=== PATIENT | female | born 1985 | race Caucasian/White ===

== ENCOUNTER 2016-05-19 09:16 | Emergency (ER) | payer BC ==
[~2016-05-19] VITALS: Ht 165.1 cm; Wt 57.4 kg
[~2016-05-19 09:16] MED LIST: ALDOMET250 MG PO; ALDOMET500 MG PO; CEPHALEXIN500 MG PO; Colace PO; ENDOCET 5-3251 EACH PO; Feosol PO; Hydrodiuril,Oretic,E PO; IBUPROFEN800 MG PO; KEFLEX500 MG PO; LABETALOL HCL100 MG PO; LABETALOL HCL200 MG PO; LABETALOL HCL300 MG PO; LISINOPRIL-HCT1 EAC3 PO; Motrin PO; NOHOMEMEDS; NORMODYNE,TRAN200 MG PO; Normodyne,Trandate PO; Norvasc PO; PREFERA-OB P1 TABLET PO; PRENATAL TABLE1 EAC3 PO; PROCARDIA XL30 MG PO; ULTRAM50 MG PO
[2016-05-19 10:12] LABS: HEMATOCRIT 40.6 % (36.0-46.0); MCH 29.6 PG (29.0-34.0); MCHC 34.5 G/DL (30.0-36.0); MCV 85.8 FL (83-99); MEAN PLAT.VOLUME 12.2 uM^3 (9.5-12.4); PLATELET COUNT 187 K/uL (156-360); RBC DIS.WIDTH-CV 12.4 % (11.8-14.6); RBC DIS.WIDTH-SD 38.3 % (39-53); RED BLOOD COUNT 4.73 M/uL (3.80-5.20); WHITE BLOOD COUNT 6.6 K/uL (4.1-10.2)
[2016-05-19 10:22] LABS: CHLORIDE 103 mEq/L (99-109); POTASSIUM 3.7 mEq/L (3.7-5.4); SODIUM 138 mEq/L (136-147)
[2016-05-19 10:24] LABS: GLUCOSE 119 mg/dL (70-99)
[2016-05-19] MEDS ORDERED: MORGIDOX50 MG PO (10:24)
[2016-05-19] MEDS ORDERED: ATENOLOL/CHLOR1 EAC1 PO (10:24)
[2016-05-19 10:26] LABS: ANION GAP 11 MEQ/L (2-14)
[2016-05-19 10:28] LABS: GFR ESTIMATE (CALCULATED) > 59 mL/min/
[2016-05-19 10:29] LABS: UREA NITROGEN (BUN) 10 mg/dL (9-23)
[2016-05-19 10:38] LABS: QUANTITATIVE HCG < 4.0 MIU/ML
[2016-05-19 11:11] LABS: TROP-I INTERPRETATION NEGATIVE; TROPONIN-I < 0.01 ng/mL (0.0-0.30)
[2016-05-19] MEDS ORDERED: ANTIVERT25 MG PO (13:26)
[2016-05-19 14:40] VITALS: BP 130/86
== END 2016-05-19 14:40 | disposition home or self-care (01) ==
LOC: EME 09:16
DX: R42 Dizziness and giddiness (principal); Z91.018 Allergy to other foods; I10 Essential (primary) hypertension
CPT/HCPCS: 70450; 71020; 80048; 84484; 84702; 85027; 93005; 99281; 99284

== ENCOUNTER 2016-08-27 09:42 | Emergency (ER) | payer BC ==
[~2016-08-27] VITALS: Ht 165.1 cm; Wt 56.0 kg
[~2016-08-27 09:42] MED LIST changes: +ANTIVERT25 MG PO; +ATENOLOL/CHLOR1 EAC1 PO; +MORGIDOX50 MG PO
[2016-08-27 10:45] LABS: BASOPHIL COUNT 0.1 K/uL (0-0.1); EOSINOPHIL (%) 0.6 % (0-5); HEMATOCRIT 37.8 % (36.0-46.0); IMMATURE GRANULOCYTE (%) 0.3 % (0.0-0.7); INSTRUMENT ABS NEUTROPHIL CT 4.1 K/uL; LYMPHOCYTE COUNT 2.2 K/uL (1.0-2.8); MCH 28.9 PG (29.0-34.0); MCHC 32.8 G/DL (30.0-36.0); MCV 88.1 FL (83-99); MONOCYTE (%) 5.8 % (3-12); MONOCYTE COUNT 0.4 K/uL (0-0.8); NEUTROPHIL (%) 60.5 % (45-76); NEUTROPHIL COUNT 4.1 K/uL (1.8-6.4); PLATELET COUNT 219 K/uL (156-360); RBC DIS.WIDTH-CV 13.5 % (11.8-14.6); RBC DIS.WIDTH-SD 43.8 % (39-53); RED BLOOD COUNT 4.29 M/uL (3.80-5.20); WHITE BLOOD COUNT 6.8 K/uL (4.1-10.2)
[2016-08-27 10:59] LABS: CHLORIDE 109 mEq/L (99-109); POTASSIUM 4.1 mEq/L (3.7-5.4); SODIUM 140 mEq/L (136-147)
[2016-08-27 11:01] LABS: GLUCOSE 98 mg/dL (70-99)
[2016-08-27 11:02] LABS: ANION GAP 9 MEQ/L (2-14)
[2016-08-27 11:05] LABS: GFR ESTIMATE (CALCULATED) > 59 mL/min/
[2016-08-27 11:06] LABS: UREA NITROGEN (BUN) 9 mg/dL (9-23)
[2016-08-27 11:13] LABS: QUANTITATIVE HCG < 4.0 MIU/ML
[2016-08-27 12:59] VITALS: BP 125/98
== END 2016-08-27 13:00 | disposition home or self-care (01) ==
LOC: EME 09:42
PROVIDERS: Emergency Medicine
DX: G25.2 Other specified forms of tremor (principal); F41.9 Anxiety disorder, unspecified; I10 Essential (primary) hypertension
CPT/HCPCS: 70450; 80048; 84702; 85025; 99281; 99285; J2060; J7030

== ENCOUNTER 2017-05-19 08:09 | Emergency (ER) | payer BC ==
[~2017-05-19] VITALS: Ht 165.1 cm; Wt 61.3 kg
[2017-05-19 09:26] LABS: BASOPHIL (%) 1.3 % (0-1); BASOPHIL COUNT 0.1 K/uL (0-0.1); EOSINOPHIL (%) 1.1 % (0-5); EOSINOPHIL COUNT 0.1 K/uL (0-0.3); HEMATOCRIT 39.5 % (36.0-46.0); HEMOGLOBIN 13.6 G/DL (11.9-15.5); IMMATURE GRANULOCYTE (%) 0.2 % (0.0-0.7); LYMPHOCYTE (%) 35.4 % (15-42); MCH 30.8 PG (29.0-34.0); MCHC 34.4 G/DL (30.0-36.0); MCV 89.4 FL (83-99); MONOCYTE (%) 6.8 % (3-12); MONOCYTE COUNT 0.4 K/uL (0-0.8); NEUTROPHIL (%) 55.2 % (45-76); NEUTROPHIL COUNT 3.1 K/uL (1.8-6.4); PLATELET COUNT 191 K/uL (156-360); RBC DIS.WIDTH-CV 11.9 % (11.8-14.6); RBC DIS.WIDTH-SD 38.9 % (39-53); RED BLOOD COUNT 4.42 M/uL (3.80-5.20); WHITE BLOOD COUNT 5.6 K/uL (4.1-10.2)
[2017-05-19 09:37] LABS: CHLORIDE 110 mEq/L (99-109); POTASSIUM 4.3 mEq/L (3.7-5.4); SODIUM 139 mEq/L (136-147)
[2017-05-19 09:38] LABS: GLUCOSE 99 mg/dL (70-99)
[2017-05-19 09:39] LABS: D-DIMER ELISA < 150.00 ng/mLDDU (<230); PTT 29.7 SEC (25-37)
[2017-05-19 09:42] LABS: CREATININE 0.7 mg/dL (0.6-1.3); GFR ESTIMATE (CALCULATED) > 59 mL/min/
[2017-05-19 09:43] LABS: UREA NITROGEN (BUN) 10 mg/dL (9-23)
[2017-05-19 09:48] LABS: TROP-I INTERPRETATION NEGATIVE; TROPONIN-I < 0.01 ng/mL (0.0-0.30)
[2017-05-19 12:14] LABS: TROP-I INTERPRETATION NEGATIVE; TROPONIN-I < 0.01 ng/mL (0.0-0.30)
[2017-05-19] MEDS ORDERED: MOTRIN800 MG PO (12:41)
[2017-05-19 12:51] VITALS: BP 117/80
== END 2017-05-19 12:59 | disposition home or self-care (01) ==
LOC: EME 08:09
PROVIDERS: Emergency Medicine
DX: R07.89 Other chest pain (principal); I10 Essential (primary) hypertension; F41.9 Anxiety disorder, unspecified
CPT/HCPCS: 71045; 80048; 84484; 85025; 85379; 85610; 85730; 93005; 99281; 99284

== ENCOUNTER 2017-05-27 14:53 | Emergency (ER) | payer BC ==
[~2017-05-27] VITALS: Ht 165.1 cm; Wt 68.0 kg
[~2017-05-27 14:53] MED LIST changes: +MOTRIN800 MG PO
[2017-05-27] MEDS ORDERED: PREDNISONE20 MG PO (16:49)
[2017-05-27] MEDS ORDERED: PEPCID20 MG PO (16:53)
[2017-05-27] MEDS ORDERED: BENADRYL25 MG PO (16:53)
[2017-05-27] MEDS ORDERED: EPIPEN ADU0.3 MG/0.3 IM (16:56)
[2017-05-27 17:04] VITALS: BP 135/88
== END 2017-05-27 17:09 | disposition home or self-care (01) ==
LOC: EME 14:53
DX: R05 Cough (principal); R06.02 Shortness of breath; T50.8X5A Adverse effect of diagnostic agents, initial encounter; I10 Essential (primary) hypertension; F41.9 Anxiety disorder, unspecified
CPT/HCPCS: 99281; 99285; J2930; S0028

== ENCOUNTER 2017-08-25 09:59 | Emergency (ER) | payer BC ==
[~2017-08-25] VITALS: Ht 165.1 cm; Wt 62.2 kg
[~2017-08-25 09:59] MED LIST changes: +BENADRYL25 MG PO; +EPIPEN ADU0.3 MG/0.3 IM; +PEPCID20 MG PO; +PREDNISONE20 MG PO
[2017-08-25 10:58] LABS: HEMATOCRIT 40.8 % (36.0-46.0); HEMOGLOBIN 14.1 G/DL (11.9-15.5); MCH 30.8 PG (29.0-34.0); MCHC 34.6 G/DL (30.0-36.0); MCV 89.1 FL (83-99); RBC DIS.WIDTH-CV 12.4 % (11.8-14.6); RBC DIS.WIDTH-SD 40.3 % (39-53); RED BLOOD COUNT 4.58 M/uL (3.80-5.20); WHITE BLOOD COUNT 8.5 K/uL (4.1-10.2)
[2017-08-25 11:02] LABS: CHLORIDE 106 mEq/L (99-109); POTASSIUM 3.9 mEq/L (3.7-5.4); SODIUM 142 mEq/L (136-147)
[2017-08-25 11:03] LABS: GLUCOSE 95 mg/dL (70-99)
[2017-08-25 11:07] LABS: CREATININE 0.7 mg/dL (0.6-1.3); GFR ESTIMATE (CALCULATED) > 59 mL/min/
[2017-08-25 11:08] LABS: UREA NITROGEN (BUN) 7 mg/dL (9-23)
[2017-08-25 11:11] LABS: TROP-I INTERPRETATION NEGATIVE; TROPONIN-I < 0.01 ng/mL (0.0-0.30)
[2017-08-25 11:15] LABS: QUANTITATIVE HCG < 4.0 MIU/ML
[2017-08-25 11:32] LABS: PLAT.SUFFICIENCY ADEQUATE; PLATELET COUNT 241 K/uL (156-360)
[2017-08-25] MEDS ORDERED: ZOFRAN ODT4 MG PO (13:59)
[2017-08-25 14:18] LABS: TROP-I INTERPRETATION NEGATIVE; TROPONIN-I < 0.01 ng/mL (0.0-0.30)
[2017-08-25 14:28] VITALS: BP 124/67
== END 2017-08-25 14:29 | disposition home or self-care (01) ==
LOC: EME 09:59
PROVIDERS: Nurse Practitioner Acute Care
DX: R00.2 Palpitations (principal); I10 Essential (primary) hypertension; F41.9 Anxiety disorder, unspecified
CPT/HCPCS: 71046; 80048; 84484; 84702; 85027; 93005; 99281; 99284